=== PATIENT | female | born 1965 | race Hispanic/Latino ===

== ENCOUNTER → 2024-05-27 | Day surgery (SDC) | payer OTHER ==
[~2024-05-27] MED LIST: CARBAMAZEPINE200 MG PO; KLONOPIN0.5 MG PO; MAGNESIUM OXID400 MG PO; POTASSIUM CHLO10 ME1 PO; PROBIOTIC & AC1 EACH PO; VIT C PO; VIT D3-VIT K21 EACH PO
[2024-05-27] MEDS: LACTATED RINGER'S 1,000 ML ONE (14:06)
[2024-05-27 15:45] VITALS: BP 108/57; PULSE 64; RESP 16; TEMP 97.4; O2SAT 99
== END | disposition home or self-care (01) ==
LOC: OR 13:21
PROVIDERS: ATTEND Internal Medicine Gastroenterology
DX: Z12.11 Encounter for screening for malignant neoplasm of colon (principal); K64.8 Other hemorrhoids; I61.9 Nontraumatic intracerebral hemorrhage, unspecified; G40.909 Epilepsy, unspecified, not intractable, without status epilepticus
CPT/HCPCS: 45378; J7121